=== PATIENT | female | born 2000 | race Caucasian/White ===

== ENCOUNTER 2021-05-14 09:56 | Inpatient (IN) ==
[2021-05-14] MEDS ORDERED: Metoclopramide 10 MG/2 ML VIAL IVP PRN (10:01)
[2021-05-14] MEDS ORDERED: *HR* Nalbuphine 10 MG/ML AMPUL IV PRN (10:01)
[2021-05-14] MEDS ORDERED: Lidocaine 1% 20 ML MDV ID PRN (10:01)
[2021-05-14] MEDS ORDERED: Naloxone 0.4 MG/ML INJ IVP PRN (10:01)
[2021-05-14] MEDS ORDERED: Azithromycin 500 MG in 0.9 % Sodium Chloride 250 ML IVPB PRN (10:01)
[2021-05-14] MEDS ORDERED: Famotidine 20 MG/2 ML VIAL IVP PRN (10:01)
[2021-05-14] MEDS ORDERED: Ondansetron 4 MG/2 ML VIAL IVP PRN (10:01)
[2021-05-14] MEDS ORDERED: Ringers Solution, Lactated 1,000 ML IVC SCH (10:15)
[2021-05-14] MEDS ORDERED: Oxytocin 20 units/ LR 1000 mL 20 UNIT/1,000 ML BAG IVC SCH ×2 (10:15→23:15)
[2021-05-14 11:22] LABS: Basophils % 0.2 %; Eosinophils # 0.1 K/mcL (0.0-0.6); Hematocrit 35.8 % (35.3-44.9); Hemoglobin 11.9 g/dL (11.5-15.4); Immature Granulocytes % 0.8 % (0-4); Lymphocytes # 1.3 K/mcL (0.6-4.6); Lymphocytes % 13.5 %; Mean Corpuscular HGB Conc 33.2 g/dL (31.6-35.5); Mean Corpuscular Hemoglobin 28.7 pg (28.0-33.3); Mean Corpuscular Volume 86.3 fL (83.0-100.0); Mean Platelet Volume 11.6 fL (9.4-12.4); Monocytes # 0.6 K/mcL (0.0-1.3); Monocytes % 6.6 %; Neutrophils # 7.4 K/mcL (1.6-8.9); Platelet Count 138 K/mcL (140-400); Red Blood Count 4.15 M/mcL (3.82-4.97); Red Cell Distribution Width 13.3 % (11.5-14.5); Segmented Neutrophils % 77.9 %; White Blood Count 9.5 K/mcL (4.3-11.1)
[2021-05-14] MEDS ORDERED: miSOPROStoL 25 MCG TABLET PO ONE (11:23)
[2021-05-14 11:32] LABS: Amphetamine Screen,Urine Negative ng/mL (Cutoff=1000); Barbiturate Screen,Urine Negative ng/mL (Cutoff=200); Benzodiazepines Screen,Urine Negative ng/mL (Cutoff=200); Cannabinoid Screen,Urine Negative ng/mL (Cutoff = 50); Cocaine Screen,Urine Negative ng/mL (Cutoff= 300); Opiate Screen,Urine Negative ng/mL (Cutoff=300); Phencyclidine Screen,Urine Negative ng/mL (Cutoff=25)
[2021-05-14] MEDS ORDERED: EPHEDrine 50 MG/ML VIAL IVP PRN (11:44)
[2021-05-14] MEDS ORDERED: Epidural Premix (fent/bupiv) 110 ML EP SCH (11:45)
[2021-05-14 12:00] LABS: Influenza A PCR Negative (Negative); Influenza B PCR Negative (Negative); Resp. Syncytial Virus PCR Negative (Negative)
[2021-05-14 12:05] LABS: SARS-CoV-2 by PCR (In House) Negative (Negative)
[2021-05-14] MEDS ORDERED: Methylergonovine 0.2 MG/ML AMPUL IM ONE (14:38)
[2021-05-14] MEDS ORDERED: Benzocaine/Menthol 56 GM AEROSOL SPRAY TP PRN (23:15)
[2021-05-14] MEDS ORDERED: NON-FORMULARY MEDICATION 1 EACH EACH (Ferrous Sulfate 325 MG) PO SCH (23:15)
[2021-05-14] MEDS ORDERED: NON-FORMULARY MEDICATION 1 EACH EACH (Prenatal Tablet 1 TAB) PO SCH (23:15)
[2021-05-14] MEDS ORDERED: Oxytocin 20 units/ LR 1000 mL 20 UNIT/1,000 ML BAG IVC ONE (23:15)
[2021-05-14] MEDS ORDERED: Measles/Mumps/Rubella Vacc 0.5 ML VIAL SQ PRN (23:15)
[2021-05-14] MEDS ORDERED: Ondansetron ODT 4 MG TAB.RAPDIS SL PRN (23:15)
[2021-05-14] MEDS ORDERED: Lanolin 7 G OINT...G. TP PRN (23:15)
[2021-05-14] MEDS ORDERED: Rho Immune Globulin 1,500 UNIT SYRINGE IM PRN (23:15)
[2021-05-14] MEDS: Acetaminophen 325 MG TABLET PO SCH (23:37)
[2021-05-15] MEDS: Ibuprofen 600 MG TABLET PO SCH ×3 (01:14→15:00)
[2021-05-15] MEDS: Acetaminophen 325 MG TABLET PO SCH ×4 (05:54→19:45)
[2021-05-15 06:18] LABS: Basophils % 0.1 %; Eosinophils % 0.1 %; Hematocrit 32.2 % (35.3-44.9); Hemoglobin 11.2 g/dL (11.5-15.4); Immature Granulocytes % 0.5 % (0-4); Lymphocytes # 1.1 K/mcL (0.6-4.6); Lymphocytes % 6.4 %; Mean Corpuscular HGB Conc 34.8 g/dL (31.6-35.5); Mean Corpuscular Hemoglobin 29.6 pg (28.0-33.3); Mean Corpuscular Volume 85.2 fL (83.0-100.0); Mean Platelet Volume 11.8 fL (9.4-12.4); Monocytes % 6.1 %; Neutrophils # 14.7 K/mcL (1.6-8.9); Platelet Count 122 K/mcL (140-400); Red Blood Count 3.78 M/mcL (3.82-4.97); Red Cell Distribution Width 13.2 % (11.5-14.5); Segmented Neutrophils % 86.8 %
[2021-05-15 06:32] LABS: White Blood Count 16.9 K/mcL (4.3-11.1)
[2021-05-15] MEDS: Prenatal Vit/FA 1 EACH TABLET PO SCH (08:50)
[2021-05-16] MEDS: Prenatal Vit/FA 1 EACH TABLET PO SCH (08:06)
[2021-05-16 08:47] VITALS: BP 118/82; TEMP 98.2; O2SAT 99
[2021-05-16] MEDS ORDERED: FLU Vac QV 21-22 (6Month+)/PF 0.5 ML SYRINGE IM ONE (09:09)
[2021-05-16 09:53] VITALS: PULSE 74
== END 2021-05-16 10:19 | disposition home or self-care (01) | DRG 542 ==
LOC: 1NENULAB 09:56 → 1NENUOBS 05-15 01:10
PROVIDERS: ADMIT Student in an Organized Health Care Education/Training Program; ATTEND Student in an Organized Health Care Education/Training Program